=== PATIENT | female | born 1965 | race Caucasian/White ===

== ENCOUNTER 2017-12-02 19:25 | Inpatient (IN) | payer SELFPAY ==
[~2017-12-02] VITALS: Ht 154.9 cm; Wt 81.6 kg
[2017-12-02 19:30] VITALS: BP_SYST 145
[2017-12-02 20:27] LABS: BILIRUBIN,URINE NEGATIVE (NEGATIVE); BLOOD, URINE 3+ (NEGATIVE); CLARITY/URINE SL CLOUDY (CLEAR); COLOR,URINE YELLOW (YELLOW); GLUCOSE,URINE NEGATIVE (NEGATIVE); KETONES,URINE NEGATIVE (NEGATIVE); LEUKOCYTE ESTERASE ,URINE 1+ (NEGATIVE); NITRITE, URINE POSITIVE (NEGATIVE); PROTEIN URINE NEGATIVE (NEGATIVE); UROBILINOGEN,URINE 0.2 (0.2-1.0)
[2017-12-02] MEDS ORDERED: NACL 0.9% 3,000 ML IV ONE (20:31)
[2017-12-02 20:33] LABS: BACTERIA,URINE MODERATE /HPF (None Seen); WBC,URINE 20-50 /HPF (0-3)
[2017-12-02 20:58] LABS: BASOPHILS # (AUTO) 0.2 K/uL (0.0-0.2); BASOPHILS % (AUTO) 1.8 % (0.0-2.0); EOSINOPHILS % (AUTO) 0.5 % (0.0-4.0); HEMATOCRIT 41.5 % (36-48); HEMOGLOBIN 13.4 g/dL (12.0-16.0); LYMPHOCYTES # (AUTO) 0.4 K/uL (1.0-5.5); LYMPHOCYTES % (AUTO) 4.6 % (20.5-51.5); MEAN CORPUSCULAR HEMOGLOBIN 29 pg (27-31); MEAN CORPUSCULAR HGB CONC 32 % (32-36); MEAN CORPUSCULAR VOLUME 89 fL (79.0-98.0); MONOCYTES % (AUTO) 0.5 % (1.7-9.3); NEUTROPHILS # (AUTO) 8.3 K/uL (1.8-7.7); NEUTROPHILS % (AUTO) 92.6 % (40.0-70.0); PLATELET COUNT (AUTO) 192 K/uL (130-430); RED BLOOD CELL COUNT(AUTO) 4.67 MIL/uL (4.2-6.2); RED CELL DISTRIBUTION WIDTH 12.7 % (9.0-15.0); WHITE BLOOD COUNT (AUTO) 8.9 K/uL (4.8-10.8)
[2017-12-02 21:08] LABS: CALCIUM 10.5 mg/dL (8.4-11.0); CREATININE 0.95 mg/dL (0.55-1.30); POTASSIUM 3.3 mmol/L (3.5-5.1)
[2017-12-02 21:11] LABS: PROTHROMBIN TIME 10.5 SECS (9.5-12.5)
[2017-12-02 21:13] LABS: ALBUMIN 3.6 g/dL (3.4-4.8); TOTAL BILIRUBIN 1.1 mg/dL (0.0-1.0)
[2017-12-02] MEDS ORDERED: cefTRIAXone 2 GM VIAL ONE (22:07)
[2017-12-02] MEDS ORDERED: NACL 0.9% 1,000 ML IV ONE (23:00)
[2017-12-02] MEDS ORDERED: MORPHINE 2 MG/ML INJ. SYRINGE IVP PRN (23:15)
[2017-12-02 23:39] VITALS: BP_SYST 115
[2017-12-03] MEDS: NACL 0.9% 1,000 ML IV SCH ×2 (01:19→11:07)
[2017-12-03 06:39] LABS: BASOPHILS % (AUTO) 0.3 % (0.0-2.0); EOSINOPHILS % (AUTO) 0.1 % (0.0-4.0); HEMOGLOBIN 12.3 g/dL (12.0-16.0); LYMPHOCYTES # (AUTO) 0.7 K/uL (1.0-5.5); LYMPHOCYTES % (AUTO) 5.3 % (20.5-51.5); MEAN CORPUSCULAR HEMOGLOBIN 29 pg (27-31); MEAN CORPUSCULAR HGB CONC 33 % (32-36); MEAN CORPUSCULAR VOLUME 88 fL (79.0-98.0); MONOCYTES # (AUTO) 0.7 K/uL (0.0-1.0); MONOCYTES % (AUTO) 5.2 % (1.7-9.3); NEUTROPHILS # (AUTO) 11.2 K/uL (1.8-7.7); NEUTROPHILS % (AUTO) 89.1 % (40.0-70.0); PLATELET COUNT (AUTO) 178 K/uL (130-430); RED CELL DISTRIBUTION WIDTH 12.7 % (9.0-15.0); WHITE BLOOD COUNT (AUTO) 12.6 K/uL (4.8-10.8)
[2017-12-03 06:45] LABS: CALCIUM 9.7 mg/dL (8.4-11.0); CREATININE 0.7 mg/dL (0.55-1.30); POTASSIUM 3.5 mmol/L (3.5-5.1)
[2017-12-03 08:26] VITALS: BP_SYST 126
[2017-12-03] MEDS ORDERED: cefTRIAXone 1 GM VIAL IV ONE (09:00)
[2017-12-03] MEDS ORDERED: POTASSIUM CHLORIDE 20 MEQ TAB.PRT.SR PO PRN (09:15)
[2017-12-03] MEDS ORDERED: MORPHINE 2 MG/ML INJ. SYRINGE IVP PRN ×2 (09:15)
[2017-12-03] MEDS ORDERED: MUPIROCIN 2% TOPICAL OINTMENT 22 GM NS PRN (09:15)
[2017-12-03] MEDS ORDERED: LORazepam 2 MG/ML VIAL IVP PRN (09:15)
[2017-12-03] MEDS ORDERED: ACETAMINOPHEN 325 MG TABLET PO PRN (09:15)
[2017-12-03] MEDS ORDERED: MAGNESIUM SULFATE 50 ML IV PRN (09:15)
[2017-12-03] MEDS ORDERED: DOCUSATE SODIUM 100 MG CAPSULE PO PRN (09:15)
[2017-12-03] MEDS ORDERED: cefTRIAXone 1 GM in D5W 50 ML IV SCH (09:15)
[2017-12-03] MEDS ORDERED: ONDANSETRON HCL 4 MG/2 ML VIAL IVP PRN (09:15)
[2017-12-03] MEDS ORDERED: metroNIDAZOLE 500 mg/NS 100 ML IV SCH (09:15)
[2017-12-03] MEDS ORDERED: ZOLPIDEM TARTRATE 5 MG TABLET PO PRN (09:15)
[2017-12-03] MEDS ORDERED: cefTRIAXone 1 GM IVPB PREMIX 50 ML IV ONE (10:15)
[2017-12-03] MEDS: ACETAMINOPHEN 325 MG TABLET PO PRN ×2 (11:17→20:02)
[2017-12-03] MEDS: PIPERACILLIN/TAZO 3.375/DEX-IS 50 ML IV SCH ×3 (12:17→22:19)
[2017-12-03 12:24] VITALS: BP_SYST 149
[2017-12-03 16:05] VITALS: BP_SYST 93
[2017-12-03 19:05] VITALS: BP_SYST 124
[2017-12-03] MEDS: HEPARIN SODIUM,PORCINE 5000 UNITS/ML VIAL SUBCUT SCH (20:07)
[2017-12-04 00:03] VITALS: BP_SYST 136
[2017-12-04] MEDS: NACL 0.9% 1,000 ML IV SCH ×2 (03:26→08:25)
[2017-12-04] MEDS: ACETAMINOPHEN 325 MG TABLET PO PRN (03:32)
[2017-12-04] MEDS: PIPERACILLIN/TAZO 3.375/DEX-IS 50 ML IV SCH ×2 (04:16→12:00)
[2017-12-04 07:42] LABS: BASOPHILS % (AUTO) 0.2 % (0.0-2.0); HEMATOCRIT 35.5 % (36-48); LYMPHOCYTES # (AUTO) 0.3 K/uL (1.0-5.5); LYMPHOCYTES % (AUTO) 3.8 % (20.5-51.5); MEAN CORPUSCULAR HEMOGLOBIN 30 pg (27-31); MEAN CORPUSCULAR HGB CONC 34 % (32-36); MEAN CORPUSCULAR VOLUME 88 fL (79.0-98.0); MONOCYTES # (AUTO) 0.3 K/uL (0.0-1.0); MONOCYTES % (AUTO) 2.8 % (1.7-9.3); NEUTROPHILS # (AUTO) 8.4 K/uL (1.8-7.7); NEUTROPHILS % (AUTO) 93.2 % (40.0-70.0); PLATELET COUNT (AUTO) 117 K/uL (130-430); RED BLOOD CELL COUNT(AUTO) 4.05 MIL/uL (4.2-6.2); RED CELL DISTRIBUTION WIDTH 12.9 % (9.0-15.0)
[2017-12-04 07:46] LABS: CALCIUM 9.9 mg/dL (8.4-11.0); CREATININE 0.82 mg/dL (0.55-1.30)
[2017-12-04 08:04] VITALS: BP_SYST 98
[2017-12-04 08:09] LABS: POTASSIUM 2.8 mmol/L (3.5-5.1)
[2017-12-04] MEDS: HEPARIN SODIUM,PORCINE 5000 UNITS/ML VIAL SUBCUT SCH (08:25)
[2017-12-04] MEDS ORDERED: cefTRIAXone 1 GM IVPB PREMIX 50 ML IV SCH (09:00)
[2017-12-04] MEDS ORDERED: POTASSIUM CHLORIDE 20 MEQ TAB.PRT.SR PO ONE (11:00)
[2017-12-04 12:00] VITALS: BP_SYST 106
[2017-12-04 13:45] VITALS: BP_SYST 106
[2017-12-04 14:18] LABS: CREATININE 0.88 mg/dL (0.55-1.30); POTASSIUM 3.8 mmol/L (3.5-5.1)
[2017-12-04 16:00] VITALS: BP_SYST 110
== END 2017-12-04 16:24 | disposition home or self-care (01) | DRG 872 ==
LOC: SED 19:25 → SMU 23:10
PROVIDERS: ADMIT General Practice; ATTEND General Practice
DX: A41.9 Sepsis, unspecified organism (principal); N13.6 Pyonephrosis; E78.5 Hyperlipidemia, unspecified; N20.0 Calculus of kidney; E78.00 Pure hypercholesterolemia, unspecified; E87.6 Hypokalemia; Z87.440 Personal history of urinary (tract) infections; Z90.710 Acquired absence of both cervix and uterus; Z90.49 Acquired absence of other specified parts of digestive tract; Z79.899 Other long term (current) drug therapy
CPT/HCPCS: 36415; 71045; 80048; 80053; 81000-TC; 81025; 82550-TC; 83036; 83605; 83690-TC; 83735-TC; 83880; 84484; 85025; 85379; 85610-TC; 85730-TC; 87040-TC; 87086; 87186-TC; 93005; 96361; 96365; 99285; J0696; J1644; J2060; J2270; J2405; J2543; J3475; J7030